=== PATIENT | male | born 1950 | race Caucasian/White ===

== ENCOUNTER 2019-07-17 10:12 | Observation (INO) ==
[2019-07-17] MEDS ORDERED: NS 1,000 ML IV ONE ×2 (10:36→14:21)
[2019-07-17 10:44] LABS: URINE SOURCE CLEAN CATCH
[2019-07-17 10:48] LABS: BASO# 0.03 X1000 (0.0-0.2); BASO% 0.3 % (0.0-0.8); BILIRUBIN URINE NEGATIVE (NEGATIVE); BLOOD URINE MODERATE (NEGATIVE); COLOR YELLOW; GLUCOSE URINE NEGATIVE (NEGATIVE); HEMATOCRIT 44.9 % (42.0-52.0); HEMOGLOBIN 14.3 g/dL (14.0-18.0); IMM GRAN# 0.03 X1000 (0.0-0.04); IMM GRAN% 0.3 % (0.0-0.5); KETONE URINE NEGATIVE (NEGATIVE); LEUKOCYTES URINE NEGATIVE (NEGATIVE); LYMPH# 0.39 X1000 (1.2-3.4); LYMPH% 3.3 % (20.5-51.1); MCH 27.3 PG (27-31); MCHC 31.8 g/dL (33-37); MCV 85.9 FL (81-99); MONO# 1.33 X1000 (0.11-0.59); MONO% 11.4 % (1.7-9.3); MPV 10.2 FL (7.4-10.4); NEUT# 9.87 X1000 (1.4-6.5); NEUT% 84.7 % (42.2-75.2); NITRITE URINE NEGATIVE (NEGATIVE); PLT 193 X1000 (130-400); PROTEIN URINE 30 mg/dL (NEGATIVE); RBC 5.23 XMIL (4.7-6.1); RDW 13.7 % (11.5-14.5); SP GRAVITY URINE 1.027; TURBIDITY URINE CLEAR (CLEAR); UR EPITHELIAL CELLS <10 /HPF (<10); URINE BACTERIA NEGATIVE /HPF; URINE WBC <10 /HPF (<10); UROBILINOGEN URINE NORMAL (NORMAL); WBC 11.65 X1000 (4.8-10.8)
[2019-07-17 11:03] LABS: AGAP 14; ALBUMIN 4.1 g/dL (3.5-5.0); ALKALINE PHOSPHATASE 32 U/L (32-122); BUN 11 mg/dL (8-22); CALCIUM 8.6 mg/dL (8.8-10.2); CHLORIDE 99 mmol/L (98-107); COSMO 271; CREATININE 0.7 mg/dL (0.7-1.2); ESTIMATED GFR > 60; GLUCOSE 122 mg/dL (70-104); GOT 30 U/L (10-34); GPT 33 U/L (10-44); POTASSIUM 3.8 mmol/L (3.5-5.1); SODIUM 135 mmol/L (136-145); TCO2 22 mmol/L (25-35); TOTAL PROTEIN 7.4 g/dL (6.3-8.3)
[2019-07-17 11:06] LABS: CK PROFILE 316 U/L (24-204); INR 1.08; PROTIME 14.6 Seconds (11.0-16.0)
[2019-07-17 11:07] LABS: PTT 35.4 Seconds (22.3-41.8)
[2019-07-17 11:22] LABS: CK INDEX 0.7 (0.0-2.5); CK-MB 2.08 ng/mL (0.0-5.0)
--- NOTE | 2019-07-17 11:26 | Diag Imaging Result Doc PS360 ---
EXAM: CHEST-1 VIEW HISTORY: fever TECHNIQUE: Single view COMPARISON: 02/01/2017 FINDINGS: The lungs are well expanded. The heart is not enlarged. The vessels are not distended. There are no infiltrates. No effusion identified. IMPRESSION: No pneumonia Electronically signed by Colin Ortez 07/17/2019 11:23 AM
[2019-07-17] MEDS ORDERED: LEVAQUIN 750 MG/D5W 750 MG/150 ML IVPB IV ONE (12:20)
[2019-07-17] MEDS ORDERED: TAMIFLU PO ONE (12:20)
[2019-07-17 12:59] LABS: INFLUENZA A POSITIVE (NEGATIVE); INFLUENZA B NEGATIVE (NEGATIVE)
[2019-07-17] MEDS: TYLENOL PO PRN ×2 (14:23→21:16)
[2019-07-17] MEDS ORDERED: SOLU-MEDROL IV ONE (14:24)
--- NOTE | 2019-07-17 14:55 | HISTORY AND PHYSICAL ---
PRIMARY CARE PROVIDER: Dr. Chicas. CHIEF COMPLAINT: Shortness of breath, fever. HISTORY OF PRESENT ILLNESS: Mr. Jose Lamb is a 69-year-old male with a medical history of hyperlipidemia, hypothyroidism, BPH, hypertension, who presented to his primary care provider's clinic today. Apparently yesterday evening started having shortness of breath, headache, nonproductive cough, fever, and at the clinic today he tested positive for influenza A. He was sent here for shortness of breath and lower oxygen levels. Here, he is stable. He has been started on Tamiflu and oxygen, along with nebulizers and steroids. He has also had some nausea, in addition to the other symptoms. PAST MEDICAL HISTORY: 1. Hypertension. 2. Hyperlipidemia. 3. Hypothyroidism. 4. BPH. SURGICAL HISTORY: None. SOCIAL HISTORY: Two pack per day smoker since the age of 16. He quit drinking alcohol in 2019. 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 FAMILY HISTORY: Mother: No medical conditions. Father: With coronary disease. ALLERGIES: Penicillin causes rash. HOME MEDICATIONS: 1. Aspirin 81 mg p.o. daily. 2. Cardizem 360 mg p.o. daily. 3. Fenofibrate 160 mg p.o. daily. 4. Prospect-3 fatty acid fish oil 300 mg p.o. daily. 5. Flomax 0.4 mg p.o. daily. 6. Levothyroxine 50 mcg p.o. daily. REVIEW OF SYSTEMS: Fourteen point review of systems are complete, and all were negative except for those mentioned above in the HPI. PHYSICAL EXAMINATION: VITAL SIGNS: Temperature is 101.1 degrees, heart rate 106, respiratory rate 26, blood pressure 145/66, O2 saturation 96% on room air. GENERAL: Mr. Jose Lamb is a 69-year-old in no acute distress, is able to answer questions appropriately. HEENT: Atraumatic, normocephalic. Pupils equal, round, reactive to light. Extraocular movements intact. Mucous membranes are moist. NECK: Trachea midline. CARDIOVASCULAR: S1, S2. Tachycardic rate and rhythm. No rubs, gallops, murmurs. No lower extremity edema. +2 dorsalis and radial pulses. Negative JVD or carotid bruits. PULMONARY: Inspiratory wheezes noted. Increased work of breathing. He is tolerating room air; he may need a little oxygen, a little tachypneic. GI: Soft, round, positive bowel sounds x4. EXTREMITIES: Moves all extremities equally. Full range of motion. NEUROLOGIC: A and O x3. Follows commands. Sensory is intact. SKIN: Warm, dry, intact. LABORATORY DATA: White blood cells 11,000, hemoglobin 14, hematocrit 44, platelet count 193. INR 1.08, PTT is 35.4. Sodium 135, potassium 3.8. BUN 11, creatinine 0.7, glucose 122, calcium 8.6. Bilirubin 0.40, AST 30, ALT 33, albumin 4.1, lactate 1.0. Urine protein 30, moderate blood in the urine, 10 to 20 red blood cells in the urine. Influenza A positive. IMAGING: Chest x-ray: No pneumonia. ASSESSMENT AND PLAN: 1. Influenza A with mild acute hypoxemic respiratory failure requiring oxygen. We are going to add oxygen. We will do steroids and nebulizers as well. He will be on Tamiflu and Levaquin, but most likely this is all viral. 2. Sepsis secondary to #1. 3. Possible chronic obstructive pulmonary disease. No diagnosis of it. He remains a 2 pack-per- day smoker. He has been smoking since he was 16 years old. Not on any home medications for it, but he and his spouse are both concerned that he may have it. So, maybe can get an outpatient consult with Pulmonology to evaluate for respiratory disease. 4. Hyperlipidemia. Continue fenofibrate and fish oil. 5. Hypothyroidism. Continue Synthroid. 6. Benign prostatic hypertrophy. Continue Flomax. 7. Deep venous thrombosis prophylaxis with sequential compression devices. Dictated by JUAN Cisneros for Vega Chicas MD cc: JUAN Cisneros MD
[2019-07-17] MEDS ORDERED: DUONEB (A & A) INH SCH (15:30)
[2019-07-17] MEDS: XOPENEX NEB INH SCH ×3 (20:06→22:51)
[2019-07-17] MEDS: ATROVENT NEB INH SCH ×2 (20:10→22:51)
[2019-07-17] MEDS: TAMIFLU PO SCH (20:43)
[2019-07-17] MEDS: SOLU-MEDROL IV SCH (22:39)
[2019-07-18] MEDS: ATROVENT NEB INH SCH ×6 (02:58→22:39)
[2019-07-18] MEDS: XOPENEX NEB INH SCH ×6 (02:58→22:40)
[2019-07-18 05:55] LABS: EOS% 0.1 % (0.0-10.0); HEMATOCRIT 44.2 % (42.0-52.0); HEMOGLOBIN 13.9 g/dL (14.0-18.0); LYMPH% 5.5 % (20.5-51.1); MCH 27.1 PG (27-31); MCHC 31.4 g/dL (33-37); MCV 86.2 FL (81-99); MONO% 6.6 % (1.7-9.3); MPV 10.2 FL (7.4-10.4); NEUT% 87.6 % (42.2-75.2); PLT 194 X1000 (130-400); RBC 5.13 XMIL (4.7-6.1); RDW 13.8 % (11.5-14.5); WBC 9.21 X1000 (4.8-10.8)
[2019-07-18 05:56] LABS: EOS# 0.01 X1000 (0.0-0.7); IMM GRAN# 0.02 X1000 (0.0-0.04); IMM GRAN% 0.2 % (0.0-0.5); LYMPH# 0.51 X1000 (1.2-3.4); MONO# 0.61 X1000 (0.11-0.59); NEUT# 8.06 X1000 (1.4-6.5)
[2019-07-18 06:23] LABS: AGAP 10; ALBUMIN 3.5 g/dL (3.5-5.0); ALKALINE PHOSPHATASE 28 U/L (32-122); BUN 9 mg/dL (8-22); CALCIUM 8.3 mg/dL (8.8-10.2); CHLORIDE 107 mmol/L (98-107); COSMO 284; CREATININE 0.5 mg/dL (0.7-1.2); ESTIMATED GFR > 60; GLUCOSE 166 mg/dL (70-104); GOT 45 U/L (10-34); GPT 38 U/L (10-44); POTASSIUM 3.8 mmol/L (3.5-5.1); SODIUM 141 mmol/L (136-145); TCO2 25 mmol/L (25-35); TOTAL PROTEIN 6.6 g/dL (6.3-8.3)
[2019-07-18] MEDS: SOLU-MEDROL IV SCH ×3 (06:35→22:17)
[2019-07-18] MEDS: SYNTHROID PO SCH (06:35)
[2019-07-18 07:05] LABS: LYMPHS 6 % (21-51); MONO 2 % (1-9); SEGS 92 % (42-75)
[2019-07-18] MEDS: TRICOR PO SCH (10:31)
[2019-07-18] MEDS: TAMIFLU PO SCH ×2 (10:31→20:25)
[2019-07-18] MEDS: ASPIRIN EC PO SCH (10:31)
[2019-07-18] MEDS: CARDIZEM CD PO SCH (10:31)
[2019-07-18] MEDS: FLOMAX PO SCH (10:32)
[2019-07-18] MEDS: PATIENT'S OWN MED PO SCH (10:32)
[2019-07-18] MEDS ORDERED: LEVAQUIN 750 MG/D5W 750 MG/150 ML IVPB IV SCH (12:00)
[2019-07-18] MEDS ORDERED: LACTULOSE PO ONE (18:13)
[2019-07-18] MEDS: COLACE PO SCH (20:25)
[2019-07-18] MEDS ORDERED: NICODERM PATCH TD PRN (20:41)
--- NOTE | 2019-07-18 21:50 | PROGRESS NOTE ---
DATE: 07/18/2019 SUBJECTIVE: Patient notes overall he is feeling better. Denies any fevers or chills. PHYSICAL EXAMINATION: Vital Signs: Reviewed. Temperature 98 degrees, pulse 77, respiratory rate 20, BP 134/69. General: Patient is pleasant. He is in no distress. States that he is starting to feel a whole lot better than he did on admission. HEENT: Normocephalic. Neck: Supple. Cardiovascular: Regular rate. Chest: Clear. Abdomen: Soft. Extremities: Moves all extremities. ASSESSMENT: 1. Influenza type A positive. 2. Sepsis. 3. Chronic obstructive pulmonary disease. 4. Hyperlipidemia 5. Hypothyroidism. PLAN: We will continue antibiotics, Tamiflu, Solu-Medrol, breathing treatments, oxygen and will follow. Hopefully home over the next 1 or 2 days. cc: Vega Chicas MD
[2019-07-19] MEDS: ATROVENT NEB INH SCH ×2 (03:15→08:01)
[2019-07-19] MEDS: XOPENEX NEB INH SCH ×2 (03:15→08:01)
[2019-07-19] MEDS: SYNTHROID PO SCH (06:26)
[2019-07-19] MEDS: SOLU-MEDROL IV SCH (06:26)
[2019-07-19 06:35] LABS: AGAP 11; ALBUMIN 3.5 g/dL (3.5-5.0); ALKALINE PHOSPHATASE 29 U/L (32-122); BUN 13 mg/dL (8-22); CALCIUM 8.3 mg/dL (8.8-10.2); CHLORIDE 103 mmol/L (98-107); COSMO 282; CREATININE 0.5 mg/dL (0.7-1.2); ESTIMATED GFR > 60; GLUCOSE 151 mg/dL (70-104); GOT 47 U/L (10-34); GPT 46 U/L (10-44); SODIUM 140 mmol/L (136-145); TCO2 26 mmol/L (25-35); TOTAL PROTEIN 6.6 g/dL (6.3-8.3)
[2019-07-19 07:00] LABS: HEMATOCRIT 43.1 % (42.0-52.0); IMM GRAN# 0.03 X1000 (0.0-0.04); IMM GRAN% 0.2 % (0.0-0.5); LYMPH# 0.53 X1000 (1.2-3.4); LYMPH% 3.5 % (20.5-51.1); MCH 27.6 PG (27-31); MCHC 32.5 g/dL (33-37); MONO# 1.14 X1000 (0.11-0.59); MONO% 7.6 % (1.7-9.3); MPV 10.8 FL (7.4-10.4); NEUT# 13.24 X1000 (1.4-6.5); NEUT% 88.7 % (42.2-75.2); PLT 207 X1000 (130-400); RBC 5.07 XMIL (4.7-6.1); RDW 13.7 % (11.5-14.5); WBC 14.94 X1000 (4.8-10.8)
[2019-07-19 07:40] LABS: LYMPHS 4 % (21-51); MONO 8 % (1-9); SEGS 88 % (42-75)
[2019-07-19] MEDS ORDERED: LEVAQUIN PO SCH (09:00)
[2019-07-19] MEDS: CARDIZEM CD PO SCH (09:03)
[2019-07-19] MEDS: FLOMAX PO SCH (09:03)
[2019-07-19] MEDS: TRICOR PO SCH (09:03)
[2019-07-19] MEDS: TAMIFLU PO SCH (09:03)
[2019-07-19] MEDS: COLACE PO SCH (09:03)
[2019-07-19] MEDS: ASPIRIN EC PO SCH (09:03)
[2019-07-19 09:38] VITALS: BP 137/64
[2019-07-19] MEDS ORDERED: FLU VACCINE IM ONE (10:21)
[2019-07-19] MEDS: PATIENT'S OWN MED PO SCH (10:25)
[2019-07-19] MEDS ORDERED: SOLU-MEDROL IV SCH (18:00)
--- NOTE | 2019-07-20 13:04 | DISCHARGE SUMMARY ---
ADMISSION DATE: 07/17/2019 DISCHARGE DATE: 07/19/2019 DISCHARGE DIAGNOSES: 1. Influenza type A. 2. Mild hypoxic respiratory failure, resolved. 3. Sepsis, resolved. 4. Chronic obstructive pulmonary disease. 5. Hyperlipidemia. 6. Hypothyroidism. 7. Benign prostatic hypertrophy. 8. Mild leukocytosis. CONSULTATIONS: None. PROCEDURES: None. BRIEF HOSPITAL COURSE: The patient is a 69-year-old male who presented to the hospital with increased cough, congestion, shortness of breath, muscle aches, fatigue, was diagnosed with influenza type A, leukocytosis, was placed on antibiotics, steroids, and Tamiflu. Thankfully, on discharge, his symptoms have all but resolved. He notes that he is feeling tremendously better, and therefore he will be discharged home. DISPOSITION: The patient will be discharged home. Discussed with him that he needs to follow up as an outpatient with treatment facility of choice. Will continue Tamiflu for 5 days, Levaquin for 7. Continue steroid dose pack. Breathing treatments at home. No other changes made on his chronic diet, activity, or medications. TIME SPENT: Greater than 30 minutes were spent. cc: Vega Chicas MD
== END 2019-07-19 10:40 | disposition home or self-care (01) ==
LOC: P.ED 10:12 → INTOOBSV 14:50 → P.MEDSURG 14:50
PROVIDERS: ATTEND Family Medicine